=== PATIENT | female | born 1995 | race Caucasian/White ===

== ENCOUNTER → 2022-06-30 08:14 | Outpatient (CLI) | payer OTHER, MEDICAID, SELFPAY | PROVIDERS: Visit Provider Nurse Practitioner Family | DX: J02.9 Acute pharyngitis, unspecified (principal) | CPT/HCPCS: 87070 ==

== ENCOUNTER → 2023-03-23 14:38 | Outpatient (CLI) | payer OTHER, SELFPAY | PROVIDERS: Referring Provider Registered Nurse; Visit Provider Registered Nurse | DX: J45.20 Mild intermittent asthma, uncomplicated (principal); Z86.16 Personal history of COVID-19 | CPT/HCPCS: 94060; 94726; 94729 ==

== ENCOUNTER 2023-11-06 11:23 | Emergency (ER) | payer OTHER, SELFPAY ==
[2023-11-06 11:40] VITALS: BP 128/78; PULSE 73; RESP 16; TEMP 37; O2SAT 97; BMI 43.7
--- NOTE | 2023-11-06 11:47 | ED_ITS ---
HPI - Wound/Laceration <JORDAN Kothari - Last Filed: 11/06/23 12:09> General Chief Complaint: Wound/Laceration Stated Complaint: Cut left Index finger Time Seen by Provider: 11/06/23 11:42 History of Present Illness HPI narrative: 28-year-old female, never smoker, presents to the emergency department with a left index finger laceration secondary to cutting a bagel earlier today. Site bled profusely at home but was controlled with direct pressure and Band-Aid. Patient believes her last tetanus shot was over 10 years ago. Related Data Home Medications Medication Instructions Recorded Confirmed albuterol sulfate 90 mcg/actuation 1 inh inhalation ONCE 06/30/22 04/28/23 aerosol inhaler levonorgestrel 21 mcg/24 hr (up to intrauterine 04/28/23 04/28/23 8 years) 52 mg intrauterine device (Mirena) Previous Rx's Medication Instructions Recorded fluticasone propionate 50 1 spray intranasal Q12H #16 grams 06/30/22 mcg/actuation nasal spray,suspension (Flonase Allergy Relief) Allergies Allergy/AdvReac Type Severity Reaction Status Date / Time No Known Drug Allergies Allergy Unverified 04/28/23 14:05 Review of Systems <JORDAN Kothari - Last Filed: 11/06/23 12:09> Review of Systems Narrative: Narrative: See HPI. GENERAL: Denies chills, fatigue, fever, sweats. HEENT: Denies sinus pain, ear pain, sore throat, difficulty swallowing, dizziness. RESPIRATORY: Denies dyspnea, cough, wheezing, sputum. CARDIOVASCULAR: Denies chest pain, palpitations, edema. GASTROINTESTINAL: Denies nausea, vomiting, abdominal pain, diarrhea, constipation. : Denies dysuria, frequency, incontinence, hematuria, urinary retention, flank pain. MSK: Denies weakness, joint pain, or bony pain. SKIN: Denies rash, skin lesions, or pruritis. Endorses laceration to left index finger. NEUROLOGIC: Denies weakness, dizziness, headache, numbness, confusion. PSYCHIATRIC: No concerning psychosocial issues. Patient History <JORDAN Kothari - Last Filed: 11/06/23 12:09> Social History Smoking Status: Never smoker Smoking Status: Never smoker Exam <JORDAN Kothari - Last Filed: 11/06/23 12:09> Narrative Exam Narrative: Exam Narrative: GENERAL: This is a well-nourished, well-developed patient, in no acute distress HEAD: Atraumatic. Normocephalic. ENT: Nose without bleeding, purulent drainage. Airway patent. RESPIRATORY: Respiratory rate and effort are normal. MSK: Moves all extremities. Normal range of motion, no clubbing or edema. Neurovascularly intact. NEURO: A&O x 3. SKIN: Warm, dry, no rashes or lesions noted. 1.5 cm linear laceration of left index finger intermediate phalange. Initial Vital Signs Initial Vital Signs: Vital Signs Temperature 98.6 F 11/06/23 11:40 Pulse Rate 73 11/06/23 11:40 Respiratory Rate 16 11/06/23 11:40 Blood Pressure 128/78 11/06/23 11:40 Pulse Oximetry 97 11/06/23 11:40 Oxygen Delivery Method Room Air 11/06/23 11:40 Reviewed <Will Clarke MD - Last Filed: 11/06/23 22:10> Initial Vital Signs Initial Vital Signs: Vital Signs Temperature 98.6 F 11/06/23 11:40 Pulse Rate 73 11/06/23 11:40 Respiratory Rate 16 11/06/23 11:40 Blood Pressure 128/78 11/06/23 11:40 Pulse Oximetry 97 11/06/23 11:40 Oxygen Delivery Method Room Air 11/06/23 11:40 Procedures <JORDAN Kothari - Last Filed: 11/06/23 12:09> Laceration Repair Laceration 1: Time of procedure: 11:51 Site: hand Side (If applicable): left Size (cm): 1.5 Description: linear Depth: simple, single layer Local Anesthetic: lidocaine 1% Amount of anesthesia used (mL): 2 Skin layer closed with: nylon Skin layer suture size: 5-0 Number of sutures: 5 Technique: simple, interrupted Course <JORDAN Kothari - Last Filed: 11/06/23 12:09> Orders Ordered: Discontinued Medications Diphtheria/Tetanus/Acell Pertussis (Tet,Diph,Pertuss(Acell),Vac/Pf 0.5 Ml Syringe) 0.5 ml IM .ONCE ONE Stop: 11/06/23 11:46 Last Admin: 11/06/23 11:55 Dose: 0.5 ml Documented By: CTS Lidocaine HCl (Lidocaine 1% 20 Ml) 20 ml INJ INTRA-OP ONE Stop: 11/06/23 11:47 Last Admin: 11/06/23 11:55 Dose: 20 ml Documented By: CTS Vital Signs Vital signs: Vital Signs - 8 hr 11/06/23 11:40 Temperature 98.6 F Pulse Rate 73 Respiratory Rate 16 Pulse Oximetry 97 Oxygen Delivery Method Room Air <Will Clarke MD - Last Filed: 11/06/23 22:10> Orders Ordered: Discontinued Medications Diphtheria/Tetanus/Acell Pertussis (Tet,Diph,Pertuss(Acell),Vac/Pf 0.5 Ml Syringe) 0.5 ml IM .ONCE ONE Stop: 11/06/23 11:46 Last Admin: 11/06/23 11:55 Dose: 0.5 ml Documented By: CTS Lidocaine HCl (Lidocaine 1% 20 Ml) 20 ml INJ INTRA-OP ONE Stop: 11/06/23 11:47 Last Admin: 11/06/23 11:55 Dose: 20 ml Documented By: CTS Vital Signs Vital signs: Vital Signs - 8 hr 11/06/23 11:40 Temperature 98.6 F Pulse Rate 73 Respiratory Rate 16 Pulse Oximetry 97 Oxygen Delivery Method Room Air MDM - Wound/Laceration <JORDAN Kothari - Last Filed: 11/06/23 12:09> Differential Diagnosis Differential diagnosis: Likely laceration MDM Narrative Medical decision making narrative: 28-year-old female with left index finger laceration. Site was anesthetized and closed with 5 sutures. Patient tolerated procedure well. Tetanus status was updated. Instructed patient to follow up with family doctor or return to the walk-in clinic or emergency department in 10-14 days for suture removal. Discussed proper wound care and signs of infection that would necessitate a return visit for possible antibiotic therapy. Patient verbalized understanding and was agreeable to course of action. Discharge Plan Departure Patient Disposition: Home Clinical Impression: Laceration Instructions: DI for Laceration Repair, DI for Wound Infection Activity Restrictions/Additional Instructions: *You have been diagnosed with a left index finger laceration repair. We placed 5 sutures and you tolerated the procedure well. Please either follow up with your family doctor, walk-in clinic or return to the emergency department in 10- 14 days for suture removal. Please watch for signs of infection that include increased redness, swelling or yellow discharge. If this occurs, please return for possible antibiotic therapy. We have updated your tetanus status any were technically good for the next 10 years. Please follow-up with your family doctor as needed. *What to do: *Please continue to take your regular medications as directed. [ ] New medication prescriptions sent to your pharmacy: [ ] [ ] New medication written as a paper prescription [x ] No new medications given *Please follow up with your primary care provider in 2-3 days, call for an appointment. Let them know you were seen in the Emergency Department and that we ask that you be seen in follow up. We will electronically transmit a record of today's note if your PCP is in our system *If you do not have a primary care provider please contact the [facility] Resource line at [phone]. They will ask some questions about your medical history and help get you set up with a doctor in the community. ? Return to ER if you should have any new, worsening or concerning symptoms, such as worsening pain, severe headache, confusion, chest pain, difficulty breathing, fever greater than 101 F, shaking chills, persistent vomiting to the point that you cannot drink fluids, or other new or worsening symptoms. Prescriptions: No Action albuterol sulfate 90 mcg/actuation HFA aerosol inhaler 1 inh inhalation ONCE fluticasone propionate [Flonase Allergy Relief] 50 mcg/actuation spray,suspension 1 spray intranasal Q12H Qty: 16 0RF Rx Instructions: administer into each nostril Mirena 21 mcg/24 hours (8 yrs) 52 mg intrauterine device intrauterine Rx Instructions: Inserted 04/28/2023 Referrals: Dora Laura ARNP [Primary Care Provider] - Stand Alone Forms: Patient Portal/API ED Sign-out <Will Clarke MD - Last Filed: 11/06/23 22:10> Cosign ED Attending Cosjosephature Attestation: I was immediately available in the department for consultation. This documentation has been reviewed and I agree with assessment and plan. Supervised by Will Clarke MD
[2023-11-06] MEDS: LIDOCAINE 1% 20 ML INJ (11:55)
[2023-11-06] MEDS: TET,DIPH,PERTUSS(ACELL),VAC/PF 0.5 ML SYRINGE IM (11:55)
== END 2023-11-06 12:20 | disposition home or self-care (01) ==
PROVIDERS: Emergency Provider Registered Nurse; PCP Registered Nurse
DX: S61.211A Laceration without foreign body of left index finger without damage to nail, initial encounter (principal); W26.0XXA Contact with knife, initial encounter; Z23 Encounter for immunization
CPT/HCPCS: 12001; 90471; 99283; 99284; 90715